=== PATIENT | male | born 1950 ===

== ENCOUNTER 2017-05-09 03:33 | Inpatient (IN) | payer OTHER ==
[~2017-05-09] VITALS: Ht 165.1 cm; Wt 74.2 kg
[2017-05-09] VITALS (755 sets, daily range): BP systolic 134–173; BP diastolic 87–103; PULSE 63–77; TEMP 96.7–97.7; O2SAT 75–100
[2017-05-09] MEDS ORDERED: PRINIVIL20 MG PO (04:47)
[2017-05-09] MEDS ORDERED: ZESTRIL 20MG TA20 MG PO (04:49)
[2017-05-09] MEDS ORDERED: ASPIRIN 81M81 MG/TA2 PO (04:49)
[2017-05-09] MEDS ORDERED: PLAVIX 75MG TAB75 MG PO (04:49)
[2017-05-09] MEDS ORDERED: LIPITOR 40MG TA40 MG PO (04:50)
[2017-05-09 05:34] LABS: INR 1.1 (0.8-3.0); PROTHROMBIN TIME 12.1 SECONDS (9.7-12.8)
[2017-05-09 05:44] LABS: TROPONIN-I 0.036 ng/mL (0.000-0.034)
[2017-05-09 05:52] LABS: PARTIAL THROMBOPLASTIN TIME 201.1 SECONDS (26.0-37.0)
[2017-05-09 08:49] LABS: HEMATOCRIT 44.5 % (42.0-52.0); HEMOGLOBIN 15.2 g/dl (13.5-18.0); MEAN CELL VOLUME 89 fl (80.0-100.0); MEAN CORPUSCULAR HEMOGLOBIN 30 pg (27.0-31.0); MEAN CORPUSCULAR HGB CONC 34 g/dl (33.0-37.0); MEAN PLATELET VOLUME 10.9 fl (7.4-10.4); PLATELET COUNT 169 K/mm3 (130-400); RED BLOOD COUNT 5.03 M/mm3 (4.20-5.60); REDCELL DISTRIBUTION WIDTH-CV 13.4 % (11.5-14.5)
[2017-05-09 08:59] LABS: CALCIUM 9.4 mg/dL (8.4-10.2); CREATININE, serum 0.99 mg/dL (0.66-1.25); POTASSIUM 3.9 mmol/L (3.4-5.0)
[2017-05-09] MEDS ORDERED: LOPRESSOR 225 MG/TAB PO (17:58)
[2017-05-09] MEDS ORDERED: HEPARIN SOD5000 U/ML IV (17:58)
[2017-05-09] MEDS ORDERED: ASPI325T6 PO (17:59)
[2017-05-09] MEDS ORDERED: TYLENOL 325MG325 MG PO (17:59)
[2017-05-09] MEDS ORDERED: ZOFRAN INJ4 MG/2 ML IV (17:59)
[2017-05-09] MEDS ORDERED: MORP4 IV (17:59)
[2017-05-09] MEDS ORDERED: COLACE 100100 MG/CAP PO (17:59)
== END 2017-05-09 21:11 | disposition short-term general hospital (02) | DRG 282 ==
LOC: IMCU 03:33 → ICU 04:25
PROVIDERS: Internal Medicine Interventional Cardiology; Nurse Practitioner Family
PROC: B2111ZZ Fluoroscopy of Multiple Coronary Arteries using Low Osmolar Contrast (ICD-10-PCS; principal; 2017-05-09)
DX: I21.4 Non-ST elevation (NSTEMI) myocardial infarction (principal); I10 Essential (primary) hypertension; I25.10 Atherosclerotic heart disease of native coronary artery without angina pectoris; I65.23 Occlusion and stenosis of bilateral carotid arteries
CPT/HCPCS: 99223-AI; C1760; J0360; J1327; J1644; J2250; J3010; J7030; Q9967